=== PATIENT | male | born 1980 | race Caucasian/White ===

== ENCOUNTER 2025-03-17 09:15 | Emergency (ER) | payer MEDICAID ==
[~2025-03-17] VITALS: Ht 172.7 cm; Wt 59.9 kg
[2025-03-17 09:40] VITALS: BP 128/88; TEMP 98.3
[2025-03-17] MEDS ORDERED: AMOX500C2 PO (10:40)
[2025-03-17 10:51] VITALS: O2SAT 99
== END 2025-03-17 10:59 | disposition home or self-care (01) ==
LOC: ER 09:28
DX: U07.1 COVID-19 (principal); J02.9 Acute pharyngitis, unspecified; M79.10 Myalgia, unspecified site; Z60.2 Problems related to living alone
CPT/HCPCS: 99283; 87426; 87804 ×2; 87070; 87880; J7030; A4223; 86403-TC